=== PATIENT | male | born 1975 | race Caucasian/White ===

== ENCOUNTER 2022-05-16 12:26 | Emergency (ER) | payer OTHER ==
[~2022-05-16] VITALS: Ht 167.6 cm; Wt 77.1 kg
[2022-05-16] MEDS ORDERED: ERYT.5TO LEFTEYE (14:07)
== END 2022-05-16 14:16 | disposition home or self-care (01) ==
LOC: ER 12:26
DX: T15.02XA Foreign body in cornea, left eye, initial encounter (principal); X58.XXXA Exposure to other specified factors, initial encounter
CPT/HCPCS: A9270